=== PATIENT | female | born 1955 | race Hispanic/Latino ===

== ENCOUNTER 2019-05-30 08:17 | Emergency (ER) | payer BC, MEDICARE ==
--- NOTE | 2019-05-30 10:20 | Vascular Lab Report ---
DUPLEX DOPPLER LOWER EXTREMITY VEINS, BILATERAL INDICATION: Bilateral lower extremity pain and swelling for one day, history of DVT. TECHNIQUE: Duplex doppler imaging was performed through the veins of both lower extremities using ve nous compression and other maneuvers. COMPARISON: No relevant prior imaging study available. FINDINGS: Right Common femoral vein: Negative. Right Superficial femoral vein: Negative. Right Popliteal vein: Negative. Right Calf veins: Negative. Left Common femoral vein: Negative. Left Superficial femoral vein: Negative. Left Popliteal vein: Negative. Left Calf veins: Negative. Additional findings: None.. IMPRESSION: No sonographic evidence for DVT in either lower extremity. Signer Name: Chad Davila Jr, MD Signed: 05/30/2019 10:15 AM Workstation Name: [id number]
--- NOTE | 2019-05-30 11:12 | XRay Report ---
Right hip, 2 views INDICATION: Right hip pain for one week. COMPARISON: None. IMPRESSION: No acute osseous or soft tissue abnormality. No significant DJD. Signer Name: Chad Davila Jr, MD Signed: 05/30/2019 11:07 AM Workstation Name: [id number]
--- NOTE | 2019-05-30 11:41 | Emergency Department Report ---
ED Extremity Problem HPI - General Chief complaint: Extremity Problem,Nontraumatic Stated complaint: RT LEG PAIN/POSS BLOT CLOT Time Seen by Provider: 05/30/19 10:12 Source: patient Mode of arrival: Ambulatory Limitations: No Limitations - History of Present Illness Initial comments: 64-year-old female presents to ED with intermittent right leg pain times one week. Patient states she initially had pain in the right lateral thigh that lasted for one day, relieved with ibuprofen. Patient states pain returned and is now in the right lateral hip. Patient reports history of DVT at the age of 17. Patient denies any swelling of the right leg, numbness or tingling. MD Complaint: extremity pain -: week(s) (1) Location: right, lower extremity History of Same: No Radiation: none Quality: stabbing Consistency: intermittent Improves with: other (NSAIDs) Worsens with: nothing Associated Symptoms: denies: chest pain, shortness of breath - Related Data Home Medications Medication Instructions Recorded Confirmed Last Taken Aspirin EC [Halfprin EC] 81 mg PO QDAY 05/24/13 05/30/19 05/29/19 Cholecalciferol (Vitamin D3) 5,000 unit PO DAILY 05/24/13 05/30/19 05/29/19 [Vitamin D] Metformin HCl [Metformin HCl ER] 1,000 mg PO QAM 05/24/13 05/30/19 05/29/19 Vitamin B Complex [B Complex] 1 each PO DAILY 05/24/13 05/30/19 05/29/19 Fluticasone [Flonase] 1 spray NS QDAY 05/30/19 05/30/19 05/29/19 Ibuprofen [Motrin] 200 mg PO QAM PRN 05/30/19 05/30/19 05/30/19 Insulin Detemir [Levemir Flextouch] 50 - 65 units SUB-Q QHS 05/30/19 05/30/19 05/28/19 Metformin HCl [Metformin HCl ER] 500 mg PO 1300,2000 05/30/19 05/30/19 05/29/19 Olopatadine HCl [Pazeo] 1 drop OU QDAY 05/30/19 05/30/19 Unknown Rosuvastatin Calcium 20 mg PO DAILY 05/30/19 05/30/19 05/29/19 Sitagliptin Phosphate [Januvia] 100 mg PO QDAY 05/30/19 05/30/19 05/29/19 glipiZIDE XL [Glucotrol Xl] 5 mg PO QAM 05/30/19 05/30/19 05/29/19 Previous Rx's Medication Instructions Recorded Last Taken Type methOCARBAMOL [Robaxin TAB] 500 mg PO Q8HR PRN #20 tablet 05/30/19 Unknown Rx Allergies Allergy/AdvReac Type Severity Reaction Status Date / Time latex Allergy Rash Verified 05/24/13 09:56 Antihistamines - Alkylamine AdvReac Unknown Verified 05/24/13 09:56 ED Review of Systems ROS: Stated complaint: RT LEG PAIN/POSS BLOT CLOT Other details as noted in HPI Comment: All other systems reviewed and negative Constitutional: denies: chills, fever Musculoskeletal: as per HPI. denies: back pain Neurological: denies: weakness, numbness, paresthesias ED Past Medical Hx - Past Medical History Previous Medical History?: Yes Hx Hypertension: Yes (2004) Hx Heart Attack/AMI: No Hx Diabetes: Yes Hx Deep Vein Thrombosis: Yes Hx Liver Disease: No Hx Renal Disease: No Hx Sickle Cell Disease: No Hx Seizures: No Hx Asthma: Yes (as a child but denies currently) Hx COPD: No - Surgical History Past Surgical History?: No Hx Pacemaker: No Hx Internal Defibrillator: No Hx Cholecystectomy: Yes - Social History Smoking Status: Former Smoker Substance Use Type: None - Medications Home Medications: Home Medications Medication Instructions Recorded Confirmed Last Taken Type Aspirin EC [Halfprin EC] 81 mg PO QDAY 05/24/13 05/30/19 05/29/19 History Cholecalciferol (Vitamin D3) 5,000 unit PO DAILY 05/24/13 05/30/19 05/29/19 History [Vitamin D] Metformin HCl [Metformin HCl ER] 1,000 mg PO QAM 05/24/13 05/30/19 05/29/19 History Vitamin B Complex [B Complex] 1 each PO DAILY 05/24/13 05/30/19 05/29/19 History Fluticasone [Flonase] 1 spray NS QDAY 05/30/19 05/30/19 05/29/19 History Ibuprofen [Motrin] 200 mg PO QAM PRN 05/30/19 05/30/19 05/30/19 History Insulin Detemir [Levemir Flextouch] 50 - 65 units SUB-Q QHS 05/30/19 05/30/19 05/28/19 History Metformin HCl [Metformin HCl ER] 500 mg PO 1300,199905/30/19 05/30/19 05/29/19 History Olopatadine HCl [Pazeo] 1 drop OU QDAY 05/30/19 05/30/19 Unknown History Rosuvastatin Calcium 20 mg PO DAILY 05/30/19 05/30/19 05/29/19 History Sitagliptin Phosphate [Januvia] 100 mg PO QDAY 05/30/19 05/30/19 05/29/19 History glipiZIDE XL [Glucotrol Xl] 5 mg PO QAM 05/30/19 05/30/19 05/29/19 History methOCARBAMOL [Robaxin TAB] 500 mg PO Q8HR PRN #20 tablet 05/30/19 Unknown Rx ED Physical Exam - General Limitations: No Limitations General appearance: alert, in no apparent distress - Head Head exam: Present: atraumatic, normocephalic - Eye Eye exam: Present: normal appearance, PERRL, EOMI - ENT ENT exam: Present: mucous membranes moist - Neck Neck exam: Present: normal inspection - Respiratory Respiratory exam: Present: normal lung sounds bilaterally. Absent: respiratory distress - Cardiovascular Cardiovascular Exam: Present: regular rate, normal rhythm - GI/Abdominal GI/Abdominal exam: Absent: distended - Extremities Exam Extremities exam: Present: normal inspection, full ROM. Absent: tenderness, pedal edema, calf tenderness - Back Exam Back exam: Absent: tenderness - Neurological Exam Neurological exam: Present: alert, oriented X3. Absent: motor sensory deficit - Psychiatric Psychiatric exam: Present: normal affect, normal mood - Skin Skin exam: Present: warm, dry, intact, normal color ED Course Vital Signs 05/30/19 05/30/19 08:19 12:05 Temperature 98.5 F Pulse Rate 90 88 Respiratory 20 16 Rate Blood Pressure 183/88 Blood Pressure 178/78 [Right] O2 Sat by Pulse 96 96 Oximetry ED Medical Decision Making - Radiology Data Radiology results: report reviewed, image reviewed - Differential Diagnosis dvt, bursitis, sciatica Critical care attestation.: If time is entered above; I have spent that time in minutes in the direct care of this critically ill patient, excluding procedure time. ED Disposition Clinical Impression: Pain of right lower extremity Disposition: DC- TO HOME OR SELFCARE Is pt being admited?: No Condition: Stable Instructions: Arthralgia (ED) Prescriptions: methOCARBAMOL [Robaxin TAB] 500 mg PO Q8HR PRN #20 tablet PRN Reason: Muscle Spasm Referrals: PRIMARY CAREMD [Referring] - 3-5 Days SHITAL BUSTAMANTE MD [Staff Physician] - 3-5 Days Time of Disposition: 11:40
[2019-05-30 12:06] VITALS: BP 178/78
== END 2019-05-30 12:06 | disposition home or self-care (01) ==
LOC: ED 08:17
DX: I10 Essential (primary) hypertension (principal); E11.9 Type 2 diabetes mellitus without complications; J45.909 Unspecified asthma, uncomplicated; Z86.718 Personal history of other venous thrombosis and embolism; Z79.01 Long term (current) use of anticoagulants; Z90.49 Acquired absence of other specified parts of digestive tract; Z87.891 Personal history of nicotine dependence; Z79.899 Other long term (current) drug therapy; Z91.040 Latex allergy status; Z88.8 Allergy status to other drugs, medicaments and biological substances
CPT/HCPCS: 93970